=== PATIENT | female | born 1960 | race Caucasian/White ===

== ENCOUNTER 2016-06-13 09:41 | Day surgery (SDC) | payer OTHER ==
[~2016-06-13] VITALS: Ht 157.6 cm; Wt 76.8 kg
[~2016-06-13 09:41] MED LIST: ASPIRIN 81M81 MG/TA2 PO; LASIX 20MG TABL20 MG PO; MICARDIS20 MG PO; PREMARIN 0.9MG0.9 MG PO
[2016-06-13] MEDS ORDERED: ASPIRIN 81M81 MG/TA2 PO (10:03)
[2016-06-13] MEDS ORDERED: NORVASC 10MG10 MG PO (10:03)
[2016-06-13] MEDS ORDERED: MULTI VITAMINS1 TAB PO (10:04)
[2016-06-13] MEDS ORDERED: NEXIUM 40MG40 MG PO (10:04)
[2016-06-13] MEDS ORDERED: ZYRTEC5 MG PO (10:04)
[2016-06-13 10:31] VITALS: BP 113/77; PULSE 64; TEMP 97.4
[2016-06-13 11:45] VITALS: BP 112/74; PULSE 66
[2016-06-13 12:00] VITALS: BP 114/67; PULSE 66
[2016-06-13 12:30] VITALS: BP 120/70; PULSE 60
== END 2016-06-13 18:56 | disposition home or self-care (01) ==
LOC: COL.CAR 09:41
DX: R00.2 Palpitations (principal); I25.10 Atherosclerotic heart disease of native coronary artery without angina pectoris; E78.5 Hyperlipidemia, unspecified; H91.91 Unspecified hearing loss, right ear; I10 Essential (primary) hypertension; Z79.82 Long term (current) use of aspirin; Z79.01 Long term (current) use of anticoagulants; Z79.899 Other long term (current) drug therapy; Z87.891 Personal history of nicotine dependence

== ENCOUNTER 2019-01-02 16:04 | Day surgery (SDC) | payer OTHER ==
[~2019-01-02] VITALS: Ht 157.5 cm; Wt 65.6 kg
[~2019-01-02 16:04] MED LIST changes: +MULTI VITAMINS1 TAB PO; +NEXIUM 40MG40 MG PO; +NORVASC 10MG10 MG PO; +ZYRTEC5 MG PO
[2019-01-02] MEDS ORDERED: NORVASC 5MG5 MG/TAB PO (16:39)
[2019-01-02] MEDS ORDERED: COREG 6.256.25 MG/TA PO (16:42)
[2019-01-02] MEDS ORDERED: MOTRIN 400400 MG/TAB PO (16:44)
[2019-01-02] MEDS ORDERED: TORADOL 10MG TA10 MG PO (16:45)
[2019-01-02] MEDS ORDERED: LEVAQUIN 5500 MG/TA1 PO (16:46)
[2019-01-02] MEDS ORDERED: LIDODERM 5% PATC1 EA TP (16:48)
[2019-01-02] MEDS ORDERED: MASON NATURAL1200 MG PO (16:50)
[2019-01-02 17:04] VITALS: BP 129/58; PULSE 80; TEMP 97.9
[2019-01-02 19:40] VITALS: BP 152/69; PULSE 67; TEMP 98.6
--- NOTE | 2019-01-02 19:40 | NUR ---
Pt. to the floor from PACU. Pt. is A&OX3, assessment complete. IV to lt. forearm patent. Pt. up to bathroom, Pt. is steady on feed. Pt. able to urinated. Vitals stable. Will monitor.
[2019-01-02 19:55] VITALS: BP 154/69; PULSE 70
[2019-01-02 20:10] VITALS: BP 159/69; PULSE 65
--- NOTE | 2019-01-02 20:20 | NUR ---
Pt. has med discharge criteria. Pt. remains A&OX3. Discharge paperwork reviewed with pt. Pt. voices understanding. INT discontinued from lt. forearm Pt. dressed and escorted out by CLARISA Perez.
[2019-01-02 20:25] VITALS: BP 145/69; PULSE 70; TEMP 98.6
== END 2019-01-02 20:30 | disposition home or self-care (01) ==
LOC: EDBD → SDCO 16:04 → JCC 19:40 → SDCO 20:30
DX: N20.1 Calculus of ureter (principal); I48.91 Unspecified atrial fibrillation; I10 Essential (primary) hypertension; I25.10 Atherosclerotic heart disease of native coronary artery without angina pectoris; Z90.710 Acquired absence of both cervix and uterus; Z88.1 Allergy status to other antibiotic agents; Z79.82 Long term (current) use of aspirin; Z87.891 Personal history of nicotine dependence
CPT/HCPCS: OP; C1769; C2617; J0690; J2704; J3010; J7120; Q9967